=== PATIENT | female | born 1935 | race Two or more races ===

== ENCOUNTER 2020-03-14 10:30 | Inpatient (IN) | payer MEDICARE, OTHER ==
[~2020-03-14] VITALS: Ht 149.9 cm; Wt 50.4 kg
[2020-03-14] MEDS ORDERED: ASCORBIC ACID 500 MG TAB PO ONE (11:00)
[2020-03-14] MEDS ORDERED: ZINC SULFATE 220mg CAP or TAB PO ONE (11:00)
[2020-03-14] MEDS ORDERED: methylPREDNISolone SOD SUCC 125 MG/2 ML VL IV ONE (11:00)
[2020-03-14] MEDS ORDERED: AZITHROMYCIN 500MG/ 250ML 250 ML IV ONE (12:00)
[2020-03-14 12:06] LABS: Eosinophils # (auto) 0 10 ^3/uL (0-0.8); Neutrophils # (auto) 11.5 10 ^3/uL (1.6-8.6); Red Cell Distribution Width 19.1 % (11.8-14.3); White Blood Cell 14.7 10^3/uL (4.4-10.8)
[2020-03-14 12:10] LABS: Basophils # (auto) 0.2 10 ^3/uL (0-0.2); Basophils % (auto) 1.3 % (0.0-2.0); Eosinophils % (auto) 0.3 % (0.0-7.0); Hematocrit 21.6 % (36.0-46.0); Lymphocytes # (auto) 1.5 10 ^3/uL (0.4-5.4); Lymphocytes % (auto) 10.1 % (10.0-50.0); Mean Corpuscular Hemoglobin 17.7 pg (28.0-32.0); Mean Corpuscular Volume 61.1 fL (80.0-100.0); Monocytes # (auto) 1.5 10 ^3/uL (0-1.3); Neutrophils % (auto) 78.3 % (37.0-80.0); Nucleated Red Blood Cells % 0.3 %; Platelet Count (auto) 434 10^3/uL (140-450); Red Blood Cells 3.53 10^6/uL (4.0-5.20)
[2020-03-14 12:13] LABS: Hemoglobin 6.3 g/dL (12.2-16.2)
[2020-03-14] MEDS ORDERED: CLOPIDOGREL BISULFATE 75 MG TAB PO ONE (12:15)
[2020-03-14] MEDS ORDERED: ASPirin 81 mg TAB PO ONE (12:15)
[2020-03-14] MEDS ORDERED: ACETAMINOPHEN 500 MG TAB PO PRN ×2 (12:30→13:15)
[2020-03-14] MEDS ORDERED: NITROGLYCERIN 0.4 MG SL TAB SL PRN (12:30)
[2020-03-14] MEDS ORDERED: MORPHINE SULF INJ 2 MG/ML SYRINGE 1ML IV PRN ×2 (12:30→13:15)
[2020-03-14 12:31] LABS: Albumin 2.9 g/dL (3.4-5.0); Calcium 8.4 mg/dL (8.5-10.1)
[2020-03-14 12:34] LABS: Lactic Acid w/Reflex 3.8 mmol/L (0.4-2.0)
[2020-03-14 12:35] LABS: BUN/Creatinine Ratio 21.5; Bilirubin, Total 0.7 mg/dL (0.2-1.0); Total Protein 7.4 g/dL (6.4-8.2)
[2020-03-14] MEDS ORDERED: traMADol HCL 50 MG TAB PO PRN (13:15)
[2020-03-14] MEDS ORDERED: DEXTROSE (50%) 50ML SYRG IV PRN (13:15)
[2020-03-14] MEDS ORDERED: ALBUTEROL SULF 2.5 MG/0.5ML(0.5%) NEB SOLN NEB PRN (13:15)
[2020-03-14] MEDS ORDERED: LACTULOSE 20Gm/30ML SOLN PO PRN (13:15)
[2020-03-14] MEDS ORDERED: TEMAZEPAM 15 MG CAP PO PRN (13:15)
[2020-03-14] MEDS ORDERED: ONDANSETRON HCL 4 MG/2 ML VIAL IV PRN (13:15)
[2020-03-14 13:23] VITALS: BP 147/51
[2020-03-14 13:54] LABS: CRP High Sensitivity 7.11 mg/dL (< 0.3)
[2020-03-14] MEDS: ALBUTEROL SULF HFA 90MCG INH 200DOSE IN SCH ×2 (14:00→22:39)
[2020-03-14 14:10] LABS: INR 1.3 (0.9-1.15); Partial Thromboplastin Time 26.3 sec (23.64-32.05)
[2020-03-14] MEDS: SODIUM CHLOR 0.9% PF (SALINE LOCK) 10ML VIAL/SYR IV SCH ×2 (14:16→22:00)
[2020-03-14] MEDS: CLINDAMYCIN 600MG IV 50 ML IV SCH ×2 (14:18→22:39)
[2020-03-14 14:27] VITALS: BP 160/63
[2020-03-14 14:42] VITALS: BP 160/58
[2020-03-14] MEDS ORDERED: LEVO88TA4 PO (14:50)
[2020-03-14] MEDS ORDERED: CLOP75TA28 PO (14:50)
[2020-03-14] MEDS ORDERED: METO100T87 PO (14:50)
[2020-03-14 16:33] VITALS: BP 170/63
[2020-03-14] MEDS: ACCU-CHEK COMFORT CURVE STRIP VI SCH ×2 (17:23→22:00)
[2020-03-14 19:10] LABS: Hemoglobin 7.9 g/dL (12.2-16.2)
[2020-03-14 19:13] LABS: Urine Bacteria FEW /hpf (None Seen); Urine Blood Negative /uL (Negative); Urine Specific Gravity 1.013 (1.001-1.035); Urine WBC 9 /hpf (0 - 5)
[2020-03-14] MEDS: PANTOPRAZOLE 40 MG TAB PO SCH ×2 (22:00→23:13)
[2020-03-14] MEDS: ENOXAPARIN SOD 60 MG/0.6 ML SYRINGE SC SCH (22:00)
[2020-03-14] MEDS: METOPROLOL TARTRATE 25 MG TAB PO SCH ×2 (22:00→23:11)
[2020-03-15] MEDS: BUDESONIDE (INHALATION) 180 MCG IH IN SCH ×3 (00:19→22:32)
[2020-03-15 01:31] LABS: Hematocrit 26.6 % (36.0-46.0); Hemoglobin 7.8 g/dL (12.2-16.2)
[2020-03-15] MEDS ORDERED: hydrALAZINE HCL 20 MG/ML VL IV ONE (01:45)
[2020-03-15 06:40] LABS: Hematocrit 31.3 % (36.0-46.0); Hemoglobin 8.3 g/dL (12.2-16.2); Mean Corpuscular Hemoglobin 19.5 pg (28.0-32.0); Mean Corpuscular Hgb Conc. 26.4 g/dL (32.0-36.0); Mean Corpuscular Volume 73.9 fL (80.0-100.0); Platelet Count (auto) 370 10^3/uL (140-450); Red Blood Cells 4.23 10^6/uL (4.0-5.20); White Blood Cell 13.7 10^3/uL (4.4-10.8)
[2020-03-15 06:41] LABS: Red Cell Distribution Width 24.8 % (11.8-14.3)
[2020-03-15 06:43] LABS: Band Neutrophils % (manual) 0; Basophils % (manual) 0 (0.0-2.0); Blast Cells 0; Eosinophils % (manual) 0 (0-7); Myelocytes % 0; Promyelocytes % 0; Reactive Lymphocytes 0
[2020-03-15] MEDS: SODIUM CHLOR 0.9% PF (SALINE LOCK) 10ML VIAL/SYR IV SCH ×3 (06:46→22:02)
[2020-03-15] MEDS: CLINDAMYCIN 600MG IV 50 ML IV SCH ×3 (06:46→22:02)
[2020-03-15] MEDS: ACCU-CHEK COMFORT CURVE STRIP VI SCH ×4 (06:47→22:04)
[2020-03-15 06:59] LABS: BUN/Creatinine Ratio 35.1; Potassium 3.9 mmol/L (3.5-5.1)
[2020-03-15 07:00] LABS: Albumin 2.8 g/dL (3.4-5.0); Bilirubin, Total 0.6 mg/dL (0.2-1.0); Calcium 8.4 mg/dL (8.5-10.1); Total Protein 7.4 g/dL (6.4-8.2)
[2020-03-15] MEDS: ALBUTEROL SULF HFA 90MCG INH 200DOSE IN SCH ×3 (07:04→22:32)
[2020-03-15 07:07] LABS: Lymphocytes % (manual) 10 (10.0-50.0); Metamyelocytes % 1; Monocytes % (manual) 2 (0-12)
[2020-03-15] MEDS ORDERED: NITROGLYCERIN 0.2MG/HR TOPICAL PATCH TD SCH ×2 (10:00)
[2020-03-15] MEDS ORDERED: CHOLECALCIFEROL (VITD3) 2,000 UNIT CAP PO SCH (10:00)
[2020-03-15] MEDS ORDERED: ENALAPRIL MALEATE 2.5 MG TAB PO SCH (10:00)
[2020-03-15] MEDS ORDERED: DexAMETHasone SOD PHOS 10MG/1ML VIAL INJ IV SCH (10:00)
[2020-03-15] MEDS ORDERED: levoFLOXacin 500MG 100 ML IV SCH (10:00)
[2020-03-15] MEDS ORDERED: CLOPIDOGREL BISULFATE 75 MG TAB PO SCH (10:00)
[2020-03-15] MEDS: ENOXAPARIN SOD 60 MG/0.6 ML SYRINGE SC SCH (10:00)
[2020-03-15] MEDS ORDERED: ASPirin 81 mg TAB PO SCH (10:00)
[2020-03-15] MEDS ORDERED: ZINC SULFATE 220mg CAP or TAB PO SCH (10:00)
[2020-03-15] MEDS ORDERED: ASCORBIC ACID 1,000 MG TAB PO SCH (10:00)
[2020-03-15] MEDS: FUROSEMIDE 40 MG/4 ML VIAL IV SCH (10:01)
[2020-03-15] MEDS: POTASSIUM CHL 20 Meq TABLET PO SCH (10:02)
[2020-03-15] MEDS: PANTOPRAZOLE 40 MG TAB PO SCH ×2 (10:02→22:03)
[2020-03-15] MEDS: METOPROLOL TARTRATE 25 MG TAB PO SCH ×2 (10:02→22:03)
--- NOTE | 2020-03-15 11:32 | NUR ---
Telemetry admit from ER DAYA HERNANDEZ admitted to Telemetry unit after SBAR received. Patient oriented to Kandace Donaldson, primary RN, unit, room, bed, and unit policies regarding patient care and visiting hours. Patient now on continuous telemetry monitoring, tele box # [id number] and telemetry reading on arrival to unit is . Patient placed on bedside oxygen, weighed by bedscale and encouraged to call if they need something. All questions and concerns addressed, patient verbalized understanding. Note:
[2020-03-15] MEDS ORDERED: FUROSEMIDE 40 MG/4 ML VIAL IV ONE (14:00)
[2020-03-15] MEDS ORDERED: ENOXAPARIN SOD 60 MG/0.6 ML SYRINGE SC ONE (14:00)
[2020-03-15] MEDS ORDERED: POTASSIUM CHL 20 Meq TABLET PO ONE (15:00)
[2020-03-15 17:00] VITALS: BP 145/67
--- NOTE | 2020-03-15 17:00 | NUR ---
RECEIVED REPORT FROM CHETNA LANDAVERDE WILL AWAIT PATIENT.
[2020-03-15] MEDS ORDERED: AMLO10TA13 PO (17:17)
[2020-03-15] MEDS ORDERED: MIRT1TAB PO (17:17)
[2020-03-15] MEDS ORDERED: LISI-648 PO (17:17)
--- NOTE | 2020-03-15 17:54 | NUR ---
RECEIVED PATIENT TO THE FLOOR PATIENT IS SLIGHTLY CONFUSED A/O X2 AT THIS TIME. BED LOCKED IN LOWEST POSITION WITH TWO SIDE RAILS UP, BED ALARM AND CALL LIGHT IN REACH. WILL CONTINUE TO MONITOR. ORIENTED PATIENT TO THE ROOM AND TO TIME AND PLACE.
--- NOTE | 2020-03-15 19:59 | NUR ---
1899. RECEIVED REPORT ON PATIENT . ASSUMED CARE 1939. PATIENT SEEN. LYING SEMI-DAMON POSITION ON HER BED. ALERT BUT CONFUSED. ASSISTED WITH REPOSITIONING. 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 DENEIS PAIN
--- NOTE | 2020-03-15 20:33 | NUR ---
2015. FAMILY CALLED TO ENQUIRE ABOUT PATIENT. THEY WERE GIVEN UPDATE ON PATIENT CARE AND CONDITION. THEY VERBALIZED APPRECIATION.
[2020-03-15] MEDS: ENALAPRIL MALEATE 2.5 MG TAB PO SCH (22:03)
--- NOTE | 2020-03-15 22:32 | NUR ---
Respiratory note: NO MDI TX GIVEN AT THIS TIME. PT REFUSED, STATES "I DON'T TAKE THOSE, MY BREATHING IS FINE". PT WAS ON R/A, SATS 90%. HAD O2 OFF. O2 PLACED BACK ON PT, 2LPM VIA N/C. NO SOB OR DISTRESS NOTED. SITTER AT BEDSIDE.
--- NOTE | 2020-03-16 00:12 | NUR ---
0 REPORT OBTAINED ON PATIENT. CARE ASSUMED. 1929. PATIENT SEEN IN HER ROOM. CONFUSED AND TALKATIVE. SITTER AT THE BEDSIDE FOR SAFETY.
--- NOTE | 2020-03-16 00:14 | NUR ---
8562. PATIENT MEDICATED FOR HEADACHE. BP 150/60. HR 90. SLEEPING PILL GIVEN.
[2020-03-16] MEDS: hydrALAZINE HCL 20 MG/ML VL IV PRN ×2 (02:03→14:11)
--- NOTE | 2020-03-16 04:46 | NUR ---
PATIENT IS SLEEPING AT THIS TIME.
[2020-03-16 05:00] VITALS: BP 140/56
[2020-03-16] MEDS: CLINDAMYCIN 600MG IV 50 ML IV SCH ×3 (05:34→22:56)
[2020-03-16] MEDS: SODIUM CHLOR 0.9% PF (SALINE LOCK) 10ML VIAL/SYR IV SCH ×3 (05:34→22:50)
[2020-03-16] MEDS: ACCU-CHEK COMFORT CURVE STRIP VI SCH (06:36)
--- NOTE | 2020-03-16 06:49 | NUR ---
PATIENT AWAKE AND STILL CONFUSED
[2020-03-16 06:53] LABS: Basophils # (auto) 0.1 10 ^3/uL (0-0.2); Basophils % (auto) 0.3 % (0.0-2.0); Eosinophils # (auto) 0.1 10 ^3/uL (0-0.8); Eosinophils % (auto) 0.3 % (0.0-7.0); Hematocrit 28.6 % (36.0-46.0); Hemoglobin 8.2 g/dL (12.2-16.2); Lymphocytes # (auto) 1.5 10 ^3/uL (0.4-5.4); Mean Corpuscular Hemoglobin 18.5 pg (28.0-32.0); Mean Corpuscular Hgb Conc. 28.8 g/dL (32.0-36.0); Mean Corpuscular Volume 64.2 fL (80.0-100.0); Monocytes # (auto) 1.6 10 ^3/uL (0-1.3); Monocytes % (auto) 7.4 % (0.0-12.0); Neutrophils # (auto) 18.5 10 ^3/uL (1.6-8.6); Nucleated Red Blood Cells % 0.3 %; Platelet Count (auto) 409 10^3/uL (140-450); Red Blood Cells 4.46 10^6/uL (4.0-5.20); Red Cell Distribution Width 25.1 % (11.8-14.3); White Blood Cell 21.7 10^3/uL (4.4-10.8)
[2020-03-16 06:56] LABS: Potassium 3.4 mmol/L (3.5-5.1)
[2020-03-16 07:11] LABS: BUN/Creatinine Ratio 26.8; Calcium 8.7 mg/dL (8.5-10.1)
[2020-03-16] MEDS: ALBUTEROL SULF HFA 90MCG INH 200DOSE IN SCH (07:13)
[2020-03-16] MEDS: BUDESONIDE (INHALATION) 180 MCG IH IN SCH (07:13)
--- NOTE | 2020-03-16 08:00 | NUR ---
OPENING SHIFT NOTE ASSUMED CARE OF PATIENT AWAKE AND ALERT X3. NO S/S OF DISTRESS NOTED OR COMPLAINTS OF PAIN. PATIENT UPDATED ON POC FOR THE DAY AND ALL QUESTIONS ANSWERED. BED IS IN LOWEST, LOCKED POSITION WITH SIDE RAILS UP X2, CALL LIGHT WITHIN REACH, AND SITTER AT BEDSIDE FOR SAFETY. WILL CONTINUE TO MONITOR Q1H AND PRN
[2020-03-16] MEDS: FUROSEMIDE 40 MG/4 ML VIAL IV SCH (09:40)
[2020-03-16] MEDS: ENALAPRIL MALEATE 2.5 MG TAB PO SCH (09:41)
[2020-03-16] MEDS: METOPROLOL TARTRATE 25 MG TAB PO SCH ×2 (09:41→22:56)
[2020-03-16] MEDS: POTASSIUM CHL 20 Meq TABLET PO SCH (09:41)
[2020-03-16] MEDS: PANTOPRAZOLE 40 MG TAB PO SCH ×2 (09:41→22:57)
[2020-03-16] MEDS ORDERED: ENOXAPARIN SOD 60 MG/0.6 ML SYRINGE SC SCH (10:00)
--- NOTE | 2020-03-16 10:00 | NUR ---
MORNING MEDS PATIENT IS REFUSING TO SWALLOW HER PO MEDS. PATIENT STATES "I CAN'T SWALLOW SINCE I HAD MY HEART ATTACK." THIS RN WITNESSED PATIENT EATING FRUIT. EDUCATED PATIENT ON IMPORTANCE OF BLOOD PRESSURE MEDICATIONS AND PATIENT IS STILL REFUSING. ATTEMPTED BEDSIDE SWALLOW EVAL AND PATIENT REFUSED THIS WELL.
[2020-03-16] MEDS: PIPERACILLIN-TAZOB 3.375GM 100 ML IV SCH ×2 (12:03→17:45)
[2020-03-16] MEDS ORDERED: POTASSIUM CHL 20 Meq TABLET PO ONE (12:15)
[2020-03-16] MEDS ORDERED: ARTIFICIAL TEARS 15ml EACHEYE PRN (12:15)
[2020-03-16 13:00] VITALS: BP 166/61
[2020-03-16 17:00] VITALS: BP 147/56
--- NOTE | 2020-03-16 19:22 | NUR ---
PT ASSESSED FOR PRN MED NEB TX, PT CONFUSED, SITTER AT BEDSIDE. PT ON 2LPM NC SPO2 98% HR 79, RR 18. NO DISTRESS NOTED. NO TX GIVEN
[2020-03-16] MEDS ORDERED: POTASSIUM EFFERVESENT TAB 25 MEQ PO ONE (20:00)
[2020-03-16 21:06] VITALS: BP 138/59
[2020-03-16] MEDS ORDERED: LISINOPRIL 10 MG TAB PO SCH (22:00)
[2020-03-17] MEDS: PIPERACILLIN-TAZOB 3.375GM 100 ML IV SCH ×4 (00:32→18:45)
[2020-03-17 05:13] VITALS: BP 105/50
[2020-03-17] MEDS: SODIUM CHLOR 0.9% PF (SALINE LOCK) 10ML VIAL/SYR IV SCH ×3 (06:00→22:30)
[2020-03-17] MEDS: CLINDAMYCIN 600MG IV 50 ML IV SCH (06:36)
--- NOTE | 2020-03-17 07:30 | NUR ---
Closing Note Patient lying in bed, eyes closed, respirations even and unlabored, appears asleep. Pt. awakens to name and touch. Bed in lowest locked position, side rails up x2, call light within reach. Sitter at bedside for safety. No s/s of distress. Care endorsed to dayshift RN.
--- NOTE | 2020-03-17 07:30 | NUR ---
Opening Shift Note Received report on the patient. Awake lying in bed. Patient shows no signs of distress at this time. Discussed plan of care with the patient. Patient AOx1 at this time. Reinforcement needed. Bed in lowest position, side rails up x2, and the call light is within reach. Sitter at bedside for safety.
[2020-03-17 09:00] VITALS: BP 109/45
[2020-03-17] MEDS ORDERED: amLODIPine BESYLATE 5 MG TAB PO SCH (10:00)
[2020-03-17] MEDS: FUROSEMIDE 40 MG/4 ML VIAL IV SCH (10:43)
[2020-03-17] MEDS: POTASSIUM CHL 20 Meq TABLET PO SCH (10:43)
[2020-03-17] MEDS: PANTOPRAZOLE 40 MG TAB PO SCH ×2 (10:44→22:40)
[2020-03-17] MEDS: METOPROLOL TARTRATE 25 MG TAB PO SCH ×3 (10:44→22:30)
[2020-03-17 11:17] LABS: Basophils # (auto) 0.1 10 ^3/uL (0-0.2); Monocytes # (auto) 1.4 10 ^3/uL (0-1.3); Nucleated Red Blood Cells % 0.4 %
[2020-03-17 11:19] LABS: Basophils % (auto) 0.8 % (0.0-2.0); Eosinophils # (auto) 0.8 10 ^3/uL (0-0.8); Eosinophils % (auto) 4.8 % (0.0-7.0); Hematocrit 30.3 % (36.0-46.0); Hemoglobin 8.8 g/dL (12.2-16.2); Lymphocytes # (auto) 1.2 10 ^3/uL (0.4-5.4); Lymphocytes % (auto) 7.7 % (10.0-50.0); Mean Corpuscular Hemoglobin 19.1 pg (28.0-32.0); Mean Corpuscular Hgb Conc. 29.2 g/dL (32.0-36.0); Mean Corpuscular Volume 65.6 fL (80.0-100.0); Monocytes % (auto) 8.6 % (0.0-12.0); Neutrophils # (auto) 12.6 10 ^3/uL (1.6-8.6); Neutrophils % (auto) 78.1 % (37.0-80.0); Platelet Count (auto) 497 10^3/uL (140-450); Red Blood Cells 4.62 10^6/uL (4.0-5.20); White Blood Cell 16.1 10^3/uL (4.4-10.8)
[2020-03-17 11:27] LABS: Red Cell Distribution Width 26.4 % (11.8-14.3)
[2020-03-17 11:40] LABS: Albumin 2.8 g/dL (3.4-5.0); Calcium 9.1 mg/dL (8.5-10.1); Potassium 3.4 mmol/L (3.5-5.1)
[2020-03-17 11:44] LABS: BUN/Creatinine Ratio 33.3; Bilirubin, Total 0.9 mg/dL (0.2-1.0); Total Protein 7.4 g/dL (6.4-8.2)
[2020-03-17 13:00] VITALS: BP 103/45
--- NOTE | 2020-03-17 15:30 | NUR ---
stool sample for C-diff collected and sent
--- NOTE | 2020-03-17 16:00 | NUR ---
IV removal IV to right forearm DC'd with clean sterile technique after swelling and redness noted on site. Catheter fully intact upon removal. Pressure dressing applied to site. Patient tolerated well.
[2020-03-17 17:00] VITALS: BP 103/53
--- NOTE | 2020-03-17 17:00 | NUR ---
IV insertion IV access obtained, via clean sterile technique by inserting 22 gauge catheter at left upper arm after 2 attempt by this RN and 2 attempts by entertainment agent Monique. IV secured properly. No trauma to site. Patient tolerated well.
--- NOTE | 2020-03-17 18:13 | NUR ---
PT ASSESSED FOR PRN MED NEB TX. SPO2 98% ON 2L NC, HR 81. PT DENIES ANY RESPIRATORY DISTRESS. NO TX INDICATED. SITTER IN ROOM. WILL CONTINUE TO MONITOR.
--- NOTE | 2020-03-17 21:30 | NUR ---
Initial blood pressure reading 154/53 mm Hg on right arm at 21:00. Patient restless at that time. Blood pressure reassessed at this time, now 135/55mm Hg. Patient appears calmer at this time. No s/s of distress. Will continue to monitor.
[2020-03-17 22:00] VITALS: BP 154/53
[2020-03-17] MEDS: LISINOPRIL 10 MG TAB PO SCH ×2 (22:00→22:30)
[2020-03-18] MEDS: PIPERACILLIN-TAZOB 3.375GM 100 ML IV SCH ×2 (00:32→05:07)
[2020-03-18 05:00] VITALS: BP 129/69
[2020-03-18] MEDS: SODIUM CHLOR 0.9% PF (SALINE LOCK) 10ML VIAL/SYR IV SCH ×3 (05:06→22:00)
[2020-03-18 06:41] LABS: Basophils # (auto) 0.1 10 ^3/uL (0-0.2); Hemoglobin 8.7 g/dL (12.2-16.2); Nucleated Red Blood Cells % 0.1 %
[2020-03-18 06:44] LABS: Basophils % (auto) 0.7 % (0.0-2.0); Eosinophils % (auto) 7.4 % (0.0-7.0); Lymphocytes # (auto) 1.4 10 ^3/uL (0.4-5.4); Lymphocytes % (auto) 10.4 % (10.0-50.0); Mean Corpuscular Hemoglobin 18.8 pg (28.0-32.0); Mean Corpuscular Hgb Conc. 28.9 g/dL (32.0-36.0); Mean Corpuscular Volume 65.1 fL (80.0-100.0); Monocytes # (auto) 1.3 10 ^3/uL (0-1.3); Monocytes % (auto) 10.1 % (0.0-12.0); Neutrophils # (auto) 9.5 10 ^3/uL (1.6-8.6); Neutrophils % (auto) 71.4 % (37.0-80.0); Platelet Count (auto) 491 10^3/uL (140-450); White Blood Cell 13.3 10^3/uL (4.4-10.8)
[2020-03-18 06:58] LABS: Red Cell Distribution Width 26.8 % (11.8-14.3)
[2020-03-18 07:01] LABS: Albumin 2.8 g/dL (3.4-5.0); Calcium 8.8 mg/dL (8.5-10.1); Potassium 3.4 mmol/L (3.5-5.1)
[2020-03-18 07:04] LABS: BUN/Creatinine Ratio 33.8; Bilirubin, Total 0.8 mg/dL (0.2-1.0); Total Protein 7.3 g/dL (6.4-8.2)
--- NOTE | 2020-03-18 07:21 | NUR ---
PRN [place] TX NOT INDICATED AT THIS TIME. PT IS AWAKE AND ALERT. PT ON 2L/MIN VIA NC. 97% O2 SATS, HR 82 BPM, RR18 BPM, BS ARE CLEAR TO AUSCULTATION. RESPIRATION IS EVEN AND NON LABORED. NO SOB OR ANY OTHER RESPIRATORY DISTRESS NOTICED. WILL CONTINUE TO MONITOR PT.
--- NOTE | 2020-03-18 07:30 | NUR ---
Opening Shift Note Received report and continuation of care. Awake lying in bed. Patient shows no signs of distress at this time. Discussed plan of care with the patient. Patient AOx1 at this time,oriented to self only. Reinforcement plans and needs. Bed in lowest position, side rails up x2, and the call light is within reach. Sitter at bedside for safety.
[2020-03-18 09:00] VITALS: BP 160/66
[2020-03-18] MEDS ORDERED: amLODIPine BESYLATE 5 MG TAB PO SCH (10:00)
[2020-03-18] MEDS: FUROSEMIDE 40 MG/4 ML VIAL IV SCH (10:06)
[2020-03-18] MEDS: POTASSIUM CHL 20 Meq TABLET PO SCH (10:06)
[2020-03-18] MEDS: METOPROLOL TARTRATE 25 MG TAB PO SCH ×2 (10:06→22:53)
[2020-03-18] MEDS: PANTOPRAZOLE 40 MG TAB PO SCH ×2 (10:07→22:53)
[2020-03-18] MEDS ORDERED: POTASSIUM CHL 20 Meq TABLET PO ONE (12:15)
[2020-03-18] MEDS ORDERED: hydrALAZINE HCL 20 MG/ML VL IV PRN (12:15)
[2020-03-18] MEDS ORDERED: LOPERAMIDE HCL 2 MG CAP PO PRN (15:00)
--- NOTE | 2020-03-18 15:13 | NUR ---
BP 164/76 Addendum: 03/18/20 at 1929 by Malina Cleveland RN RN @[id number] PATIENT MEDICATED WITH HYDRALAZINE 10 MG IVP SEE Jatinder
--- NOTE | 2020-03-18 15:55 | NUR ---
Nutrition Assessment Notes Please refer to link for full assessment notes. Est Energy needs: 2427-0508 kcals (20-23 kcal/kgBW) Est Protein needs: 51-61 gms/day (1.0-1.2 gm/kgBW) Will continue to monitor and reassess prn. Addendum: 03/18/20 at [address] Amended: Links added.
--- NOTE | 2020-03-18 16:30 | NUR ---
BP RE CHECKED AFTER 1 HOUR POST HYDRALAZINE 10 MG IVP,BP136/47
--- NOTE | 2020-03-18 16:34 | NUR ---
Hold PT today, pt having significant bouts of diarrhea. Will attempt tomorrow.
[2020-03-18 17:00] VITALS: BP 137/47
--- NOTE | 2020-03-18 17:00 | NUR ---
Patient pulled IV
--- NOTE | 2020-03-18 18:25 | NUR ---
IV STARTED ,UNABLE TO START AFTER X 3 ATTEMPT.
--- NOTE | 2020-03-18 19:22 | NUR ---
STATUS UNCHANGED,REPORT AND CONTINUATION OF CARE GIVEN TO INCOMING NOC SHIFT RN.
[2020-03-18 21:43] VITALS: BP 133/61
[2020-03-18] MEDS: LISINOPRIL 10 MG TAB PO SCH (22:54)
--- NOTE | 2020-03-19 00:07 | NUR ---
Respiratory note: PT SEEN FOR PRN MED NEB TX AT 0007. TREATMENT IS NOT INDICATED AT THIS TIME. NO RESPIRATORY DISTRESS NOTED. HR 72 RR 18 SP02 93% ON ROOM AIR. PT AWARE TO CALL FOR RESPIRATORY IF ANY DISTRESS OCCURS.
[2020-03-19] MEDS: SODIUM CHLOR 0.9% PF (SALINE LOCK) 10ML VIAL/SYR IV SCH ×3 (05:39→22:00)
[2020-03-19 05:57] VITALS: BP 126/49
[2020-03-19 07:44] LABS: Eosinophils # (auto) 1.1 10 ^3/uL (0-0.8); Nucleated Red Blood Cells % 0.1 %
[2020-03-19 07:48] LABS: Basophils # (auto) 0.2 10 ^3/uL (0-0.2); Basophils % (auto) 1.3 % (0.0-2.0); Hematocrit 30.6 % (36.0-46.0); Hemoglobin 8.9 g/dL (12.2-16.2); Lymphocytes # (auto) 1.5 10 ^3/uL (0.4-5.4); Lymphocytes % (auto) 11.9 % (10.0-50.0); Mean Corpuscular Volume 65.5 fL (80.0-100.0); Monocytes % (auto) 8.3 % (0.0-12.0); Neutrophils # (auto) 8.5 10 ^3/uL (1.6-8.6); Neutrophils % (auto) 69.5 % (37.0-80.0); Platelet Count (auto) 515 10^3/uL (140-450); Red Blood Cells 4.68 10^6/uL (4.0-5.20); White Blood Cell 12.3 10^3/uL (4.4-10.8)
[2020-03-19 07:50] LABS: Red Cell Distribution Width 26.2 % (11.8-14.3)
[2020-03-19 08:06] LABS: BUN/Creatinine Ratio 32.8; Calcium 9.2 mg/dL (8.5-10.1); Potassium 3.9 mmol/L (3.5-5.1)
[2020-03-19 09:00] VITALS: BP 112/40
[2020-03-19] MEDS: cefTRIAXone 1GM/50ML D5W 50 ML IV SCH (09:00)
[2020-03-19] MEDS ORDERED: amLODIPine BESYLATE 5 MG TAB PO SCH (10:00)
[2020-03-19] MEDS: POTASSIUM CHL 20 Meq TABLET PO SCH (10:00)
[2020-03-19] MEDS: PANTOPRAZOLE 40 MG TAB PO SCH (11:00)
[2020-03-19] MEDS: AZITHROMYCIN 250 MG TAB PO SCH (11:00)
[2020-03-19] MEDS: METOPROLOL TARTRATE 25 MG TAB PO SCH (11:00)
[2020-03-19 13:00] VITALS: BP 113/43
--- NOTE | 2020-03-19 13:10 | NUR ---
Respiratory note: TX NOT INDICATED AT THIS TIME. NO RESPIRATORY DISTRESS NOTED. HR 58 RR 18 SP02 95% ON ROOM AIR. PT AWARE TO CALL FOR RESPIRATORY IF ANY DISTRESS OCCURS.
[2020-03-19 14:34] LABS: Free T3 1.33 pg/mL (2.3-4.2)
[2020-03-19 14:39] LABS: Free T4 (Free Thyroxine) 0.73 ng/dL (0.89-1.76)
[2020-03-19] MEDS ORDERED: LORazepam 2MG/ML-1ML VIAL IV ONE (15:15)
--- NOTE | 2020-03-19 19:45 | NUR ---
OPENING SHIFT Assumed care of patient who is A&O x2. Currently on RA with no s/s of distress. Denies pain at this time. No venous access present. Patient refuses to allow attempt to gain venous access at this time. Patient is ambulatory with the use of a walker at baseline. POC discussed and patient is upset, stating that her family is under the impression that she is to be D/C'd today, rather than tomorrow. Informed patient that family would be contacted to update on POC. Patient requests that family not be contacted at this time. Bed is in low locked position with side rails rails up x2. Sitter is at the bedside of safety. Call light is within reach and patient encouraged to call or assistance when needed. Will continue to monitor for changes PRN.
--- NOTE | 2020-03-19 21:10 | NUR ---
Respiratory note: PT ASSESSED FOR PRN MED NEB TX. HR 89, RR 16, SPO2 95% ON RA. NO S/S OF ANY RESPIRATORY DISTRESS NOTED. ADVISED PT TO CALL IF TX IS NEEDED.
[2020-03-20 05:06] VITALS: BP 134/61
--- NOTE | 2020-03-20 05:55 | NUR ---
Respiratory note: PT ASSESSED FOR PRN MED NEB TX. HR 67, RR 16, SPO2 97% ON RA. NO S/S OF ANY RESPIRATORY DISTRESS NOTED.NO INDICATION FOR TX AT THIS TIME. ADVISED PT TO CALL IF TX IS NEEDED.
[2020-03-20] MEDS: SODIUM CHLOR 0.9% PF (SALINE LOCK) 10ML VIAL/SYR IV SCH ×3 (06:00→22:00)
--- NOTE | 2020-03-20 06:08 | NUR ---
ROUNDS Patient is resting comfortably with eyes closed. Respirations are even and non-labored. No distress noted.
[2020-03-20] MEDS: LEVOTHYROXINE SODIUM 100 MCG TAB PO SCH (06:20)
[2020-03-20 07:27] VITALS: BP 134/61
[2020-03-20] MEDS: cefTRIAXone 1GM/50ML D5W 50 ML IV SCH (09:00)
[2020-03-20] MEDS ORDERED: AZIT500T66 PO (09:19)
[2020-03-20] MEDS ORDERED: AMOX500T86 PO (09:19)
[2020-03-20] MEDS ORDERED: PANT40T PO (09:19)
[2020-03-20] MEDS ORDERED: FURO20TA3 PO (09:21)
[2020-03-20] MEDS ORDERED: LEV100T PO (09:21)
[2020-03-20] MEDS ORDERED: POTA10TA51 PO (09:21)
[2020-03-20] MEDS: POTASSIUM CHL 20 Meq TABLET PO SCH (11:24)
[2020-03-20] MEDS: FUROSEMIDE 40 MG TAB PO SCH (11:26)
[2020-03-20] MEDS: PANTOPRAZOLE 40 MG TAB PO SCH ×2 (11:27→22:00)
[2020-03-20] MEDS: METOPROLOL TARTRATE 25 MG TAB PO SCH ×2 (11:27→22:00)
[2020-03-20 11:45] VITALS: BP 134/61
--- NOTE | 2020-03-20 15:04 | NUR ---
NO VALID CONTACT NUMBERS ON CHART TO CONTACT FAMILY TO GROCERY CLERK SELLING PT WHO IS NOW DISCHARGED. FAMILY MEMBERS HAVE CALLED TO CHECK UP ON HERE. WAITING FOR FAMILY TO CALL. PT SAYS HIS SON JARETH HERNANDEZ LIVES IN [place] DOESN'T KNOW HIS PHONE NUMBER OR ADDRESS.
--- NOTE | 2020-03-20 19:15 | NUR ---
RT NOTE; PT ON ROOM AIR SPO2 95%, PT DENIES SOB STATED SHE IS BREATHING FINE, AND TX IS NOT NEEDED. SITTER AT BEDSIDE. NO TX GIVEN AT THIS TIME.
--- NOTE | 2020-03-20 19:20 | NUR ---
OPENING SHIFT NOTE Assumed care of patient who is A&O x3. Currently on RA with no s/s of distress. Denies pain at this time. Patient has active discharge orders, however staff has been unable to reach family for lease picker of patient. Discussed with patient who states she is to go home with her son Radames, however she does not know his [employer] number. Will continue to attempt to reach family. Bed is in low locked position with side rails up x2. Sitter is at the bedside for safety. Call light is within reach and patient encouraged to call for assistance when needed. Will continue to monitor for changes PRN.
--- NOTE | 2020-03-20 20:30 | NUR ---
FAMILY Obtained phone number for patient's son, Radames Benitez from patient's cell phone. . Called number, with no answer. Per patient, her son and his girlfriend go to bed early due to having to be a work at 0200 am. Will attempt to make contact again in the morning.
[2020-03-20 22:00] VITALS: BP 152/65
[2020-03-21] MEDS: SODIUM CHLOR 0.9% PF (SALINE LOCK) 10ML VIAL/SYR IV SCH (03:03)
--- NOTE | 2020-03-21 03:47 | NUR ---
FAMILY CONTACT Patient provided phone number for her Sister, Marie Monroe. . Will attempt to contact regarding supervisor opening and picking of patient if no answer from Son.
[2020-03-21 05:00] VITALS: BP 157/59
[2020-03-21] MEDS: LEVOTHYROXINE SODIUM 100 MCG TAB PO SCH (06:22)
--- NOTE | 2020-03-21 06:41 | NUR ---
BLOOD PRESSURE Blood pressure reassessed and is 149/59, HR: 61
--- NOTE | 2020-03-21 06:44 | NUR ---
CONTACTED FAMILY REGARDING DISCHARGE Spoke with Patient's son, Radames. He will pick patient up after 0800 am.
--- NOTE | 2020-03-21 08:50 | NUR ---
PATIENT IS DISCHARGED HOME PER MD'S ORDER. DISCHARGE INSTRUCTIONS AND FOLLOW UP INSTRUCTIONS GIVE. PATIENT ALERT AT THIS TIME, NO S/S DISTRESS NOTED.
[2020-03-21] MEDS: cefTRIAXone 1GM/50ML D5W 50 ML IV SCH (09:00)
[2020-03-21] MEDS: PANTOPRAZOLE 40 MG TAB PO SCH (10:00)
[2020-03-21] MEDS: METOPROLOL TARTRATE 25 MG TAB PO SCH (10:00)
[2020-03-21] MEDS: FUROSEMIDE 40 MG TAB PO SCH (10:00)
[2020-03-21] MEDS: POTASSIUM CHL 20 Meq TABLET PO SCH (10:00)
[2020-03-21] MEDS: AZITHROMYCIN 250 MG TAB PO SCH (10:00)
== END 2020-03-21 08:50 | disposition home or self-care (01) | DRG 177 ==
LOC: ER 10:30 → OVERFLOW 10:31 → TELE-EAST 03-15 10:56 → TELE-WESTW 03-15 19:10 → WEST WING 03-16 12:24
PROVIDERS: ADMIT Internal Medicine; ATTEND Internal Medicine
PROC: 30233N1 Transfusion of Nonautologous Red Blood Cells into Peripheral Vein, Percutaneous Approach (ICD-10-PCS; principal; 2020-03-14)
DX: J15.6 Pneumonia due to other Gram-negative bacteria (principal); J96.00 Acute respiratory failure, unspecified whether with hypoxia or hypercapnia; I21.4 Non-ST elevation (NSTEMI) myocardial infarction; G93.41 Metabolic encephalopathy; N17.0 Acute kidney failure with tubular necrosis; E43 Unspecified severe protein-calorie malnutrition; I50.33 Acute on chronic diastolic (congestive) heart failure; J44.0 Chronic obstructive pulmonary disease with (acute) lower respiratory infection; I73.9 Peripheral vascular disease, unspecified; J84.10 Pulmonary fibrosis, unspecified; D50.9 Iron deficiency anemia, unspecified; E03.9 Hypothyroidism, unspecified; E78.5 Hyperlipidemia, unspecified; G62.9 Polyneuropathy, unspecified; Z20.828 Contact with and (suspected) exposure to other viral communicable diseases; I11.0 Hypertensive heart disease with heart failure; I27.20 Pulmonary hypertension, unspecified; Z66 Do not resuscitate; Z79.02 Long term (current) use of antithrombotics/antiplatelets; Z83.3 Family history of diabetes mellitus; Z86.73 Personal history of transient ischemic attack (TIA), and cerebral infarction without residual deficits; Z87.891 Personal history of nicotine dependence
CPT/HCPCS: 36415; 36430; 36600; 70450; 70551; 71045; 80048; 80053; 81001; 82270; 82378; 82550; 82728; 82805; 82962; 83036; 83605; 83615; 83735; 83880; 84439; 84443; 84481; 84484; 85007; 85014; 85018; 85025; 85027; 85045; 85379; 85610; 85730; 86141; 86850; 86900; 86901; 86920; 87040; 87077; 87186; 87493; 93005; 93306; 94640; 96365; 96367; 96375; 97163; 99291; G0378; J1956; J2543; J3490